=== PATIENT | male | born 1935 | race Caucasian/White ===

== ENCOUNTER 2021-10-21 13:51 | Emergency (ER) | payer OTHER ==
[2021-10-21] MEDS ORDERED: Sodium Chloride 0.9% 10 ML Syringe FLUSH PRN (14:13)
[2021-10-21 15:06] LABS: TROPONIN I HIGH SENSITIVITY 2034.9 pg/mL (<=60.3)
[2021-10-21 15:51] LABS: CORONAVIRUS COVID-19 NAA NEGATIVE (NEGATIVE)
[2021-10-21] MEDS ORDERED: Albuterol/Ipratropium 3.0-0.5 MG/3 ML Neb Soln NEB ONE (16:01)
[2021-10-21] MEDS ORDERED: Furosemide 40 MG/4 ML VIAL IVPUSH ONE (17:06)
[2021-10-21] MEDS ORDERED: Aspirin 81 MG Tab.Chew PO ONE (17:06)
[2021-10-21] MEDS ORDERED: Heparin Sodium 5,000 Units/ML Vial IVPUSH ONE (17:06)
[2021-10-21] MEDS ORDERED: Heparin Sodium/D5W 25,000 UNITS/500 ML BAG IV SCH (17:15)
[2021-10-21] MEDS ORDERED: LORazepam 2 MG/ML SDV IVPUSH ONE (17:34)
== END 2021-10-21 18:30 ==
LOC: JP.ED 13:51
DX: I24.9 Acute ischemic heart disease, unspecified (principal); Z72.0 Tobacco use; Z20.822 Contact with and (suspected) exposure to COVID-19
CPT/HCPCS: 0241U; 36415; 36600; 71045; 71045-26; 80053; 82803; 83880; 84484; 85025; 93005; 93010; 94640; 96374; 96375; 99285; 99285-25; A9270-GY; J1644; J1940; J2060; J3490; J7620